=== PATIENT | male | born 1985 | race African-American/Black ===

== ENCOUNTER 2022-06-27 19:38 | Inpatient (IN) | payer OTHER ==
[~2022-06-27] VITALS: Ht 172.7 cm; Wt 61.8 kg
[~2022-06-27 19:38] MED LIST: HUMALOG SQ; INSU3INS6 SQ; LISI20TA30 PO
--- NOTE | 2022-06-27 19:56 | NUR ---
After being triaged, patient was placed back in the waiting room due to no beds available in the ER at this time.
[2022-06-27] MEDS ORDERED: CARV3.12 PO (20:00)
[2022-06-27] MEDS ORDERED: HYDR-4075 PO (20:00)
--- NOTE | 2022-06-27 21:38 | NUR ---
Patient placed in room 5A at this time.
[2022-06-27 22:06] LABS: HEMATOCRIT 28.3 % (36.7-47.1); MEAN CORPUSCULAR HEMOGLOBIN 27.8 uug (23.8-33.4); MEAN CORPUSCULAR VOLUME 90.7 fL (73.0-96.2); PLATELET COUNT (AUTO) 84 K/uL (152-348)
[2022-06-27] MEDS ORDERED: HYDROMORPHONE 1 MG/1 ML DISP.SYRIN IV ONE (22:15)
[2022-06-27 22:29] LABS: CARBON DIOXIDE 24 mmol/L (21-32); CHLORIDE 91 mmol/L (98-107); UREA NITROGEN, BLOOD 68 mg/dL (7-18)
[2022-06-27 22:31] LABS: ALANINE AMINOTRANSFERASE 26 U/L (16-63); ALKALINE PHOSPHATASE 125 U/L (50-136); ASPARTATE AMINOTRANSFERASE 15 U/L (15-37); BILIRUBIN,DIRECT 0.1 mg/dL (0.0-0.2); BILIRUBIN,TOTAL 0.2 mg/dL (0.2-1.0); TOTAL PROTEIN, SERUM 7.2 g/dL (6.4-8.2)
[2022-06-27 22:33] LABS: GLUCOSE 1168 mg/dL (74-106)
[2022-06-27 22:34] LABS: CREATININE 8.9 mg/dL (0.6-1.3)
[2022-06-27] MEDS ORDERED: CALCIUM GLUCONATE 1 GM/10 ML VIAL IV ONE (22:44)
[2022-06-27] MEDS ORDERED: ALBUTEROL SULFATE 2.5 MG/3 ML NEBU NEB ONE (22:45)
[2022-06-27] MEDS ORDERED: CALCIUM GLUCONATE IV 1 GM in IV DEXTROSE 5% 50 ML IV ONE (22:45)
[2022-06-27] MEDS ORDERED: INSULIN REGULAR, HUMAN 100 UNIT in IV NORMAL SALINE 99 ML IV ONE ×2 (22:45)
[2022-06-27] MEDS ORDERED: ALBUTEROL SULFATE 2.5 MG/3 ML NEBU ONE (22:53)
[2022-06-27 22:54] LABS: ETHANOL < 3 MG/DL (0-0)
[2022-06-27] MEDS ORDERED: IV NS 1000 ML 1,000 ML IV ONE (23:00)
[2022-06-27] MEDS ORDERED: HYDROMORPHONE 1 MG/1 ML DISP.SYRIN ONE (23:02)
[2022-06-27 23:14] LABS: ABG BASE EXCESS -2.1 mmol/L; ABG HCO3 23.7 mmol/L; ABG PCO2 45.2 mmHg (35.0-45.0); ABG PH 7.337 (7.350-7.450); ABG PO2 70.3 mmHg (75.0-100.0); ABG SITE RIGHT BRACHIAL; ABG TOTAL HEMOGLOBIN 9.5 G/dL (13.5-18.0); COHb 2.2 % (0.5-1.5); MetHb 0.3 % (0.0-1.5); O2Hb 91.1 % (94.0-97.0); VENT MODE Room Air
[2022-06-27] MEDS ORDERED: LIDOCAINE 1%-EPI 1:100,000 20 ML VIAL ONE (23:51)
[2022-06-27] MEDS ORDERED: LIDOCAINE HCL 2% 20 ML VIAL ONE (23:53)
--- NOTE | 2022-06-28 00:15 | NUR ---
COVID swab sent to lab.
[2022-06-28] MEDS ORDERED: INSULIN REGULAR, HUMAN 300 UNIT/3 ML VIAL ONE (01:11)
[2022-06-28] MEDS ORDERED: INSULIN REGULAR IV ONE ×2 (01:15)
[2022-06-28] MEDS ORDERED: INSULIN REGULAR, HUMAN 100 UNIT in IV NORMAL SALINE 99 ML IV ONE ×2 (01:15)
[2022-06-28] MEDS ORDERED: HUMAN IV ONE ×2 (01:15)
[2022-06-28] MEDS ORDERED: NORMAL SALINE IV ONE ×2 (01:15)
[2022-06-28] MEDS ORDERED: INSULIN REGULAR, HUMAN 300 UNIT/3 ML VIAL IV ONE (01:30)
[2022-06-28] MEDS ORDERED: PIPERACILLIN SODIUM/TAZOBACTAM 3.375 G in IV DEXTROSE 5% 50 ML IV ONE (01:45)
[2022-06-28] MEDS: BLOOD SUGAR DIAGNOSTIC 1 EACH STRIP VI SCH ×18 (01:50→22:00)
[2022-06-28] MEDS ORDERED: MAGNESIUM HYDROXIDE 30 ML LIQUID UDC PO PRN (02:00)
[2022-06-28] MEDS ORDERED: ONDANSETRON 4 MG/2 ML VIAL IV PRN (02:00)
[2022-06-28] MEDS ORDERED: ACETAMINOPHEN 325 MG TABLET PO PRN (02:00)
[2022-06-28] MEDS ORDERED: HYDROCODONE/APAP 5-325MG TABLET PO PRN (02:00)
[2022-06-28] MEDS ORDERED: REMEDY ESSENTIAL ZINC PASTE 113 GM TP PRN (02:00)
[2022-06-28] MEDS ORDERED: IV NS 1000 ML 1,000 ML IV PRN (02:00)
[2022-06-28] MEDS ORDERED: INSULIN REGULAR, HUMAN 100 UNIT in IV NORMAL SALINE 99 ML IV PRN ×2 (02:00)
--- NOTE | 2022-06-28 02:50 | NUR ---
Ethel performed and read HI.
--- NOTE | 2022-06-28 03:30 | NUR ---
I confirmed with patient his allergy. He saisd that he has no allergies to medications; therefore, I updated the patient's allergy to NKA.
[2022-06-28] MEDS ORDERED: PIPERACILLIN/TAZO 2.25 G in IV DEXTROSE 5% 50 ML IV ONE (03:45)
[2022-06-28] MEDS ORDERED: IV NORMAL SALINE 500 ML IV ONE (03:45)
[2022-06-28] MEDS ORDERED: HYDROMORPHONE 1 MG/1 ML DISP.SYRIN ONE ×5 (04:16→17:00)
--- NOTE | 2022-06-28 04:50 | NUR ---
The Accu-chek for this time was not taken because I was at patient's bedside assisting Dr. Lovell for IV insertions.
--- NOTE | 2022-06-28 04:59 | NUR ---
Pharmacy PLEASE READ: Computer system went down for approximately 1 hour. The doctor prescribed a written order of Dilaudid 1mg to be given via IV. The wriiten order is in the patient's physical chart.
--- NOTE | 2022-06-28 05:00 | NUR ---
IV dislodged, Dr. Lovell notified.
--- NOTE | 2022-06-28 05:20 | NUR ---
Insulin drip increased to 10 u/hr per Dr. Lovell's verbal order.
[2022-06-28] MEDS ORDERED: VANCOMYCIN IV 1,500 MG in IV DEXTROSE 5% 500 ML IV ONE (05:30)
[2022-06-28] MEDS ORDERED: HYDROMORPHONE 1 MG/1 ML DISP.SYRIN IV ONE (05:30)
[2022-06-28 05:31] LABS: *BILIRUBIN,URIN NEGATIVE (NEGATIVE); *BLOOD, URINE 1+ (NEGATIVE); *CLARITY,URINE CLEAR (CLEAR); *COLOR,URINE YELLOW (YELLOW); *KETONES,URINE NEGATIVE (NEGATIVE); *UROBILINOGEN,URINE 0.2 E.U./dl (NORMAL); LEUKOCYTE ESTERASE ,URINE NEGATIVE (NEGATIVE); NITRITE, URINE NEGATIVE (NEGATIVE)
[2022-06-28 05:35] LABS: UGLUCOSE 2+ (NEGATIVE)
[2022-06-28 05:36] LABS: BACTERIA,URINE NONE SEEN /HPF (NONE SEEN); SQUAMOUS EPITHELIAL CELL,UR NONE SEEN /HPF (NONE SEEN); WBC,URINE 0-3 /HPF (0-3)
[2022-06-28] MEDS ORDERED: LIDOCAINE HCL 2% 20 ML VIAL ONE (05:36)
--- NOTE | 2022-06-28 05:50 | NUR ---
New IV placed in Rt Jugular radha by Dr. Lovell.
[2022-06-28] MEDS ORDERED: PIPERACILLIN/TAZOBACTAM/D5W 50 ML ONE (05:51)
[2022-06-28 05:54] LABS: *AMPHETAMINE, URINE NEGATIVE (NEGATIVE); *CANNABINOID, URINE NEGATIVE (NEGATIVE); *COCCAINE, URINE NEGATIVE (NEGATIVE); *PHENCYCLIDINE SCREEN,URINE NEGATIVE (NEGATIVE)
[2022-06-28] MEDS ORDERED: VANCOMYCIN IV 0 ML ONE (05:56)
[2022-06-28] MEDS ORDERED: VANCOMYCIN HCL 500 MG VIAL ONE (06:00)
[2022-06-28 06:31] LABS: CREATININE 9.2 mg/dL (0.6-1.3); POTASSIUM 4.6 mmol/L (3.5-5.1)
[2022-06-28] MEDS: PANTOPRAZOLE SODIUM 40 MG TABLET.DR PO SCH (07:00)
--- NOTE | 2022-06-28 07:14 | NUR ---
Report given to KENNY Farnsworth.
--- NOTE | 2022-06-28 07:30 | NUR ---
Patient moved from ER room 5A to ER room 1A. Pt is A/O x4 and currently on Insulin drip at 10 units/hr.
--- NOTE | 2022-06-28 08:00 | NUR ---
AccuCheck=HI (>500). Lab called for blood draw, pt cont on Insulin drip.
--- NOTE | 2022-06-28 09:00 | NUR ---
AccuCheck=HI, cont Insulin drip at 10units/hr. Pt requesed pain medication and was medicated with Dilaudid 0.5mg IVP as per PRN order. Waste witnessed by KENNY Dasilva.
--- NOTE | 2022-06-28 09:20 | NUR ---
Midline placed to RUE by PICC Line nurse. Right external jugular saline lock removed (per pt request) with cath intact, pressure dressing applied.
--- NOTE | 2022-06-28 10:00 | NUR ---
TfvqOzijv=113, cont Insulin drip at 10 units/hr.
--- NOTE | 2022-06-28 10:15 | NUR ---
Per nursing casino floor supervisor pt to be held in ER until next shift, no CCU beds available at this time. Pt transfered to regular hospital bed for pt comfort, remains in ER room 1A.
--- NOTE | 2022-06-28 10:40 | NUR ---
Received telephone call from Charbel Mckeon DNP. Update on pt condition provided as requested. Per Charbel titrate hourly Regular Insulin drip based on AccuChek based on following formula, BSx2/100. Stated he will consult for consult and dialysis. Called lab about results at 0810 this morning that are not consistent with pt's previous results. Spoke with Silva who stated she will follwo up.
--- NOTE | 2022-06-28 12:00 | NUR ---
Pt resting with eyes closed and NAD noted at this time.
[2022-06-28 12:05] LABS: MAGNESIUM 2.3 mg/dL (1.8-2.4); PHOSPHOROUS 6.6 mg/dL (2.5-4.9); POTASSIUM 3.8 mmol/L (3.5-5.1)
[2022-06-28 12:12] LABS: CREATININE 9.6 mg/dL (0.6-1.3)
[2022-06-28 12:38] LABS: THYROID STIMULATING HORMONE 0.85 mIU/mL (0.358-3.740)
--- NOTE | 2022-06-28 13:00 | NUR ---
JaveHmsu=630, Insulin drip decreased to 3.98 units/hr as per Charbel Mckeon DNP orders.
--- NOTE | 2022-06-28 13:10 | NUR ---
Pt requested pain medication, medicated with Dilaudid 0.5mg IVP as per PRN order. Partial dose waste witnessed by KENNY Mcmahon.
[2022-06-28] MEDS: HYDROMORPHONE 1 MG/1 ML DISP.SYRIN IV PRN ×3 (13:13→21:39)
--- NOTE | 2022-06-28 13:26 | NUR ---
General Admission and LUD[facility]/ICU flowsheet documentation done. Pt. been taken care by ER. rn.
[2022-06-28] MEDS ORDERED: PIPERACILLIN/TAZO 2.25 G in IV DEXTROSE 5% 50 ML IV SCH (14:00)
--- NOTE | 2022-06-28 14:00 | NUR ---
IjtwEiyko=609, insulin drip stopped at this time.
[2022-06-28] MEDS ORDERED: METH-806 PO (14:16)
[2022-06-28] MEDS ORDERED: NIFE30TA91 PO (14:18)
[2022-06-28] MEDS ORDERED: GABA-532 PO (14:19)
--- NOTE | 2022-06-28 16:00 | NUR ---
Accu-check=18, pt is awake, alert and oriented. Spoke with Charbel Mckeon DNP via telephone and BS results reported. Pt given orange juice and 1800 ADA dinner tray ordered for pt as ordered.
--- NOTE | 2022-06-28 16:15 | NUR ---
Pt ate a sandwich and drank juice.
--- NOTE | 2022-06-28 17:00 | NUR ---
AccuChek=57. Pt requested pain medication and was medicated with Dilaudid 0.5mg IVP as per PRN order. Partial dose was wasted and witnessed by KENNY Mcmahon.
--- NOTE | 2022-06-28 17:09 | NUR ---
Dialysis nurse at bedside for hemodialysis.
--- NOTE | 2022-06-28 17:30 | NUR ---
Pt status changed from CCU to Tele by Charbel Mckeon, called tele floor for bed assignment.
[2022-06-28] MEDS: CARVEDILOL 12.5 MG TABLET PO SCH (18:00)
--- NOTE | 2022-06-28 18:00 | NUR ---
Dialysis in progress with dialysis nurse at bedside. Pt resting with eyes closed and no s/s of acute distress noted.
--- NOTE | 2022-06-28 18:05 | NUR ---
Tele room 320 assigned, pt to be trans to tele after change of shift and after dialysis is complete.
--- NOTE | 2022-06-28 20:10 | NUR ---
Dialysis ended. Per lead application architect, 2L out.
--- NOTE | 2022-06-28 20:14 | NUR ---
Patient walked to the bathroom indepedently. Activity tolerated well.
--- NOTE | 2022-06-28 20:53 | NUR ---
Patient taken to second floor CCU. Rupal COX aware of patients arrival.
[2022-06-28 21:00] VITALS: BP 192/137
[2022-06-28] MEDS: hydrALAZINE HCL 50 MG TABLET PO SCH (21:41)
[2022-06-28] MEDS ORDERED: INSULIN GLARGINE,HUM 300 UNITS/3 ML CARTRIDGE SQ ONE (21:53)
[2022-06-28 22:00] VITALS: BP 195/90
--- NOTE | 2022-06-28 22:06 | NUR ---
CALLED ABOUT NOT HAVING INSULIN SLIDING SCALE AND NEEDING B/P MEDS, ORDERS OBTAINED
[2022-06-28] MEDS: INSULIN GLARGINE,HUM 300 UNITS/3 ML CARTRIDGE SQ SCH (22:29)
[2022-06-28] MEDS: hydrALAZINE HCL 20 MG/1 ML VIAL IV PRN (22:45)
[2022-06-28 23:00] VITALS: BP 186/104
[2022-06-29] VITALS (19 sets, daily range): BP systolic 112–222; BP diastolic 46–135
[2022-06-29] MEDS: BLOOD SUGAR DIAGNOSTIC 1 EACH STRIP VI SCH ×6 (00:12→20:13)
[2022-06-29] MEDS: INSULIN REGULAR, HUMAN 300 UNIT/3 ML VIAL SQ PRN ×3 (00:20→20:24)
[2022-06-29] MEDS: HYDROMORPHONE 1 MG/1 ML DISP.SYRIN IV PRN ×7 (01:34→20:15)
--- NOTE | 2022-06-29 03:00 | NUR ---
BS 21 FOLLOWED PROTOCOL
[2022-06-29] MEDS: DEXTROSE 50% 50 ML DISP.SYRIN IV PRN (03:27)
[2022-06-29 05:05] LABS: HEMATOCRIT 24.2 % (36.7-47.1); MEAN CORPUSCULAR HEMOGLOBIN 27.7 uug (23.8-33.4); MEAN CORPUSCULAR VOLUME 83.7 fL (73.0-96.2); PLATELET COUNT (AUTO) 76 K/uL (152-348)
[2022-06-29 05:34] LABS: CREATININE 6.3 mg/dL (0.6-1.3); PHOSPHOROUS 4.2 mg/dL (2.5-4.9); POTASSIUM 3.5 mmol/L (3.5-5.1)
[2022-06-29] MEDS: PANTOPRAZOLE SODIUM 40 MG TABLET.DR PO SCH ×2 (06:06→07:00)
[2022-06-29] MEDS: CARVEDILOL 12.5 MG TABLET PO SCH ×2 (08:36→17:51)
[2022-06-29] MEDS: hydrALAZINE HCL 50 MG TABLET PO SCH ×2 (10:31→20:53)
--- NOTE | 2022-06-29 18:09 | NUR ---
Called [facility] to page Dr. Pichardo due to pt stating pain medication is not effective and to verify pt status on being down graded.
--- NOTE | 2022-06-29 19:24 | NUR ---
Received patient from CCU via wheelchair, alert and oriented x4, not in respiratory distress. MARKELL AV fistula intact with bruit/thrills. CHETNA midline intact and patent. Sinus rhythm on tele with HR 83.
[2022-06-29] MEDS: INSULIN GLARGINE,HUM 300 UNITS/3 ML CARTRIDGE SQ SCH (20:56)
[2022-06-30] MEDS: BLOOD SUGAR DIAGNOSTIC 1 EACH STRIP VI SCH ×5 (00:08→16:34)
[2022-06-30 00:15] VITALS: BP 204/77
[2022-06-30] MEDS: hydrALAZINE HCL 20 MG/1 ML VIAL IV PRN (00:17)
[2022-06-30] MEDS: HYDROMORPHONE 1 MG/1 ML DISP.SYRIN IV PRN ×5 (00:26→19:45)
[2022-06-30 02:06] LABS: HEPATITIS B SURFACE AG Negative (Negative)
--- NOTE | 2022-06-30 02:55 | NUR ---
Patient awake with cold and clammy skin, BS-22 followed protocol.
[2022-06-30] MEDS: DEXTROSE 50% 50 ML DISP.SYRIN IV PRN ×2 (03:02→08:48)
[2022-06-30 04:50] VITALS: BP 179/87
[2022-06-30] MEDS: PANTOPRAZOLE SODIUM 40 MG TABLET.DR PO SCH (06:37)
[2022-06-30 06:50] LABS: HEMATOCRIT 24.4 % (36.7-47.1); MEAN CORPUSCULAR HEMOGLOBIN 27.9 uug (23.8-33.4); MEAN CORPUSCULAR VOLUME 84.9 fL (73.0-96.2); PLATELET COUNT (AUTO) 97 K/uL (152-348)
[2022-06-30 07:43] LABS: MAGNESIUM 2.2 mg/dL (1.8-2.4); PHOSPHOROUS 5.6 mg/dL (2.5-4.9); POTASSIUM 4.7 mmol/L (3.5-5.1)
[2022-06-30] MEDS: hydrALAZINE HCL 50 MG TABLET PO SCH (08:28)
[2022-06-30] MEDS: CARVEDILOL 12.5 MG TABLET PO SCH ×2 (08:28→17:12)
--- NOTE | 2022-06-30 09:30 | NUR ---
Pt. BS checked and noted at 43. Pt. was asymptomatic and sitting at the edge of bed and his breakfast tray was in front of him. Encouraged the pt. to eat and 2 cups of orange juice given right away. Started Dextrose 50% as it was ordered for low blood sugar. BS rechecked and noted at 113. Interventions affective. Dr. Mckeon was notified about the change in condition. Will keep monitoring the patient.
[2022-06-30] MEDS: INSULIN REGULAR, HUMAN 300 UNIT/3 ML VIAL SQ PRN ×2 (11:35→16:35)
[2022-06-30 12:00] VITALS: BP 179/68
[2022-06-30 15:33] VITALS: BP 143/63
--- NOTE | 2022-06-30 16:49 | NUR ---
Pt. has been stable during the shift. Dialysis done and removed 2L of fluid. Call light within reach. Alert and oriented x4. compliance with the care given. Ambulatory. Will keep monitoring the patient.
[2022-06-30 17:12] VITALS: BP 140/72
--- NOTE | 2022-06-30 18:45 | NUR ---
Pt. will be discharge to [facility]. Called Bessie RN and gave report. Body check done and picture included in pt. chart. wet room supervisor time will be at 8:30pm and will endorse next shift. Will keep monitoring the patient till is picked up.
--- NOTE | 2022-06-30 20:00 | NUR ---
AOX4. Ambulatory. All belongings complete and documented. Discharge paperwork signed by pt. Pt picked up [facility]. Endorsed all paperwork to EMT. PT refused Accu check for 1999. Pt stated he will get it at [facility]. EMT aware. playground monitor and ID band removed. Right upper arm midline removed. Catheter tip intact and complete. Left upper arm AV fistula in place. Transferred via gurney. Pt in stable condition. All needs attended and met.
[2022-06-30] MEDS ORDERED: INSULIN GLARGINE,HUM 300 UNITS/3 ML CARTRIDGE SQ SCH (21:00)
== END 2022-06-30 20:00 | disposition short-term general hospital (02) | DRG 637 ==
LOC: ER 19:38 → TRANSITION 06-28 02:00 → CCU 06-28 20:21 → TELE3 06-29 19:35
PROVIDERS: ADMIT Nurse Practitioner Acute Care; ATTEND Nurse Practitioner Acute Care
PROC: 5A1D70Z Performance of Urinary Filtration, Intermittent, Less than 6 Hours Per Day (ICD-10-PCS; principal; 2022-06-28)
PROC: 05HB33Z Insertion of Infusion Device into Right Basilic Vein, Percutaneous Approach (ICD-10-PCS; 2022-06-28)
PROC: 05HM33Z Insertion of Infusion Device into Right Internal Jugular Vein, Percutaneous Approach (ICD-10-PCS; 2022-06-28)
PROC: B543ZZA Ultrasonography of Right Jugular Veins, Guidance (ICD-10-PCS; 2022-06-28)
DX: E10.65 Type 1 diabetes mellitus with hyperglycemia (principal); N18.6 End stage renal disease; D61.818 Other pancytopenia; E87.1 Hypo-osmolality and hyponatremia; I12.0 Hypertensive chronic kidney disease with stage 5 chronic kidney disease or end stage renal disease; I13.11 Hypertensive heart and chronic kidney disease without heart failure, with stage 5 chronic kidney disease, or end stage renal disease; E87.20 Acidosis, unspecified; L97.428 Non-pressure chronic ulcer of left heel and midfoot with other specified severity; Z79.4 Long term (current) use of insulin; E10.22 Type 1 diabetes mellitus with diabetic chronic kidney disease; Z99.2 Dependence on renal dialysis; Z91.158 Patient's noncompliance with renal dialysis for other reason; E87.5 Hyperkalemia; E10.649 Type 1 diabetes mellitus with hypoglycemia without coma; E83.39 Other disorders of phosphorus metabolism; D63.1 Anemia in chronic kidney disease; Z79.899 Other long term (current) drug therapy; Z89.432 Acquired absence of left foot; Z20.822 Contact with and (suspected) exposure to COVID-19
CPT/HCPCS: 36415; 36556; 36600; 71045; 73630; 83605; 83735; 83930; 84100; 84443; 85025; 85651; 85730; 86706; 87040; 87340; 87806; 90937; 93005; A4663; G0378; G0480; J0360; J0610; J1170; J1815; J2405; J2543; J3370; J3490; J7040; J7060